=== PATIENT | female | born 1990 | race Caucasian/White ===

== ENCOUNTER 2023-06-05 21:59 | Inpatient (IN) | payer SELFPAY ==
[2023-06-05 22:24] VITALS: BMI 28.1
[2023-06-05] MEDS ORDERED: Misoprostol 200 MCG TAB PR PRN (22:54)
[2023-06-05] MEDS ORDERED: Bicitra 30 ML UDCUP PO PRN (22:54)
[2023-06-05] MEDS ORDERED: Diphenoxylate HCl/Atropine Tablet PO PRN (22:54)
[2023-06-05] MEDS ORDERED: Ondansetron PF 4 MG/2 ML Vial IVP PRN (22:54)
[2023-06-05] MEDS ORDERED: Promethazine HCl 25 MG/ML VIAL IM PRN (22:54)
[2023-06-05] MEDS ORDERED: Acetaminophen 500 MG TAB PO PRN (22:54)
[2023-06-05] MEDS ORDERED: hydrALAZINE 20 MG/ML VIAL SLOW IVP PRN (22:54)
[2023-06-05] MEDS ORDERED: Butorphanol Tartrate 1 MG/ML VIAL SLOW IVP PRN (22:54)
[2023-06-05] MEDS ORDERED: Carboprost 250 MCG/ML AMP IM PRN (22:54)
[2023-06-05] MEDS ORDERED: fentaNYL 50 mcg/mL 1 mL Vial SLOW IVP PRN (22:54)
[2023-06-05] MEDS ORDERED: Methylergonovine 0.2 MG/ML VIAL IM PRN (22:54)
[2023-06-05] MEDS ORDERED: Famotidine/PF 20 mg/2ml Vial SLOW IVP PRN (22:54)
[2023-06-05] MEDS ORDERED: Tranexamic Acid 1,000 MG/10 ML VIAL IVP PRN (22:54)
[2023-06-05] MEDS ORDERED: Gentamicin 130 MG, Admixture Fee 1 EACH in Sodium Chloride 0.9% 100 ML IVPB SCH (23:00)
[2023-06-05] MEDS ORDERED: Clindamycin/D5W 900 MG in Premix Bag 1 BAG IVPB SCH (23:00)
[2023-06-05] MEDS ORDERED: Oxytocin 30 units/NS 500 ML 500 ML IV SCH (23:00)
[2023-06-05] MEDS ORDERED: Lactated Ringer's 1,000 ML IV SCH (23:00)
[2023-06-05] MEDS ORDERED: Azithromycin 500 MG in Sodium Chloride 0.9% 250 ML 250 ML IVPB SCH (23:00)
[2023-06-05 23:29] LABS: Hemoglobin 14.5 g/dL (12.0-15.5); Mean Corpuscular HGB CONC 34.5 g/dL (32.0-36.0); Mean Corpuscular Hemoglobin 31.4 pg (27.0-33.0); Mean Corpuscular Volume 90.9 fl (81.6-98.3); Platelet Count 239 10x3/uL (150-450); RBC Distribution Width 12.8 % (11.5-14.5); Red Blood Cell (RBC) Count 4.62 10x6/uL (3.90-5.03); White Blood Cell (WBC) Count 12.1 10x3/uL (3.5-10.5)
[2023-06-05] MEDS ORDERED: PHENYLEPHRINE-NS 100 MCG/ML 10 ML SYRINGE ONE ×2 (23:47→23:49)
[2023-06-05] MEDS ORDERED: Ondansetron PF 4 MG/2 ML Vial ONE (23:47)
[2023-06-05] MEDS ORDERED: Morphine PF 10 MG/10 ML VIAL ONE (23:47)
[2023-06-05] MEDS ORDERED: Oxytocin 10 UNITS/ML VIAL ONE (23:47)
[2023-06-05] MEDS ORDERED: ePHEDrine Sulfate 50 MG/10 ML VIAL ONE (23:47)
[2023-06-05] MEDS ORDERED: fentaNYL 50 mcg/mL 1 mL Vial ONE (23:47)
[2023-06-05] MEDS ORDERED: Ketorolac Tromethamine 30 MG/ML VIAL ONE (23:47)
[2023-06-06 00:05] LABS: HBSAg Index 0.12 S/CO (0-0.99); Hep B Surf Ag - L&D Non-Reactive S/CO (NonReactive); Syphilis Antibody Nonreactive (Nonreactive); Syphilis Antibody Index 0.05 S/CO (<1.00 Non-Reactive)
[2023-06-06] MEDS ORDERED: PROPOFOL 20 ML ONE (00:16)
[2023-06-06] MEDS ORDERED: Fentanyl 250 MCG/5 ML VIAL ONE (00:36)
[2023-06-06] MEDS ORDERED: Oxytocin 10 UNITS/ML VIAL ONE (00:47)
[2023-06-06] MEDS ORDERED: Naloxone HCl 0.4 mg/ml Vial IVP PRN ×2 (01:10)
[2023-06-06] MEDS ORDERED: diphenhydrAMINE 25 MG CAP PO PRN ×2 (01:10→03:50)
[2023-06-06] MEDS ORDERED: Naloxone HCl 0.4 mg/ml Vial IV PRN ×2 (01:10)
[2023-06-06] MEDS ORDERED: Ondansetron PF 4 MG/2 ML Vial IVP PRN ×4 (01:10→03:50)
[2023-06-06] MEDS ORDERED: Promethazine HCl 25 MG SUPP PR PRN (01:10)
[2023-06-06] MEDS ORDERED: diphenhydrAMINE 50 MG/ML VIAL IM PRN (01:10)
[2023-06-06] MEDS ORDERED: Promethazine HCl 25 MG/ML VIAL IM PRN ×2 (01:10)
[2023-06-06] MEDS ORDERED: Meperidine HCl/PF 25 MG/ML VIAL SLOW IVP PRN (01:10)
[2023-06-06] MEDS ORDERED: diphenhydrAMINE 50 MG/ML VIAL IVP PRN ×2 (01:10)
[2023-06-06] MEDS ORDERED: FENTANYL 500 MCG/10 ML VIAL 2,000 MCG in Sodium Chloride 0.9% 60 ML IV PRN (01:10)
[2023-06-06] MEDS ORDERED: Moisturizing Cream (Eucerin) 113 GM JAR TOP PRN (01:10)
[2023-06-06] MEDS ORDERED: Ketorolac Tromethamine 30 MG/ML VIAL IVP SCH (01:15)
[2023-06-06] MEDS ORDERED: Communication Order-Pharmacy FS SCH ×2 (01:15)
[2023-06-06] MEDS ORDERED: FENTANYL 500 MCG/10 ML VIAL 1,000 MCG in Sodium Chloride 0.9% 30 ML IV PRN (01:30)
[2023-06-06] MEDS ORDERED: Boostrix 0.5 ML (Tdap) VIAL (>/=7 yrs of age) IM ONE (03:50)
[2023-06-06] MEDS ORDERED: Lanolin Ointment 7 GM TUBE TOP PRN (03:50)
[2023-06-06] MEDS ORDERED: Acetaminophen 325 MG TAB PO PRN (03:50)
[2023-06-06] MEDS ORDERED: Simethicone Chewable 80 MG TAB PO PRN (03:50)
[2023-06-06] MEDS ORDERED: hydrALAZINE 20 MG/ML VIAL SLOW IVP PRN (03:50)
[2023-06-06] MEDS ORDERED: HYDROcodone/Acetaminophen 5/325 mg Tablet PO PRN ×2 (16:17→16:18)
[2023-06-06] MEDS: Ketorolac Tromethamine 30 MG/ML VIAL IVP PRN ×2 (16:43→22:51)
[2023-06-06] MEDS: Ferrous Sulfate 325 MG TAB PO SCH (18:09)
[2023-06-06] MEDS: Prenatal Vitamin 1 TAB PO SCH (19:56)
[2023-06-07] MEDS: Ferrous Sulfate 325 MG TAB PO SCH ×2 (04:30→07:29)
[2023-06-07] MEDS: Ibuprofen 800 MG TAB PO SCH ×2 (06:09→13:34)
[2023-06-07 06:12] LABS: Hemoglobin 11.8 g/dL (12.0-15.5); Mean Corpuscular HGB CONC 33.7 g/dL (32.0-36.0); Mean Corpuscular Hemoglobin 31.7 pg (27.0-33.0); Mean Corpuscular Volume 94.1 fl (81.6-98.3); Mean Platelet Volume 10.7 fl (7.4-10.4); Platelet Count 206 10x3/uL (150-450); RBC Distribution Width 13.1 % (11.5-14.5); Red Blood Cell (RBC) Count 3.72 10x6/uL (3.90-5.03); White Blood Cell (WBC) Count 10.5 10x3/uL (3.5-10.5)
[2023-06-07] MEDS ORDERED: Ibuprofen 800 MG TAB PO SCH (08:00)
[2023-06-07] MEDS: Prenatal Vitamin 1 TAB PO SCH (08:27)
[2023-06-07 14:31] VITALS: BP 131/86; TEMP 98.2
== END 2023-06-07 18:30 | disposition home or self-care (01) | DRG 788 ==
LOC: CSHLD/OP 21:59 → CSHLD 22:54 → CSHPP 06-06 03:17
PROVIDERS: ADMIT Obstetrics & Gynecology; ATTEND Obstetrics & Gynecology
PROC: 10D00Z1 Extraction of Products of Conception, Low, Open Approach (ICD-10-PCS; principal; 2023-06-06)
DX: O34.211 Maternal care for low transverse scar from previous cesarean delivery (principal); Z3A.38 38 weeks gestation of pregnancy; Z37.0 Single live birth; O24.420 Gestational diabetes mellitus in childbirth, diet controlled; O42.02 Full-term premature rupture of membranes, onset of labor within 24 hours of rupture; O99.824 Streptococcus B carrier state complicating childbirth
CPT/HCPCS: 36415; 51702; 85027; 86780; 86850; 86900; 86901; 87340; 99285; J0456; J1885; J2274; J2405; J2590; J2704; J3010; J3490; J7050; S0028

== ENCOUNTER 2025-08-13 00:18 | Inpatient (IN) | payer SELFPAY ==
[2025-08-13 01:06] VITALS: BMI 27.4
[2025-08-13 01:36] LABS: Fetal Membranes Rupture RUPTURE DETECTED (No Rupture)
[2025-08-13] MEDS ORDERED: Acetaminophen 500 MG TAB PO PRN (01:50)
[2025-08-13] MEDS ORDERED: hydrALAZINE 20 MG/ML VIAL SLOW IVP PRN ×2 (01:50→06:18)
[2025-08-13] MEDS ORDERED: Bicitra 30 ML UDCUP PO PRN (01:50)
[2025-08-13] MEDS ORDERED: Famotidine/PF 20 mg/2ml Vial SLOW IVP PRN (01:50)
[2025-08-13] MEDS ORDERED: Carboprost 250 MCG/ML AMP IM PRN (01:50)
[2025-08-13] MEDS ORDERED: Tranexamic Acid 1,000 MG/10 ML VIAL IVP PRN (01:50)
[2025-08-13] MEDS ORDERED: Ondansetron PF 4 MG/2 ML Vial IVP PRN ×3 (01:50→03:44)
[2025-08-13] MEDS ORDERED: Methylergonovine 0.2 MG/ML VIAL IM PRN (01:50)
[2025-08-13] MEDS ORDERED: Diphenoxylate HCl/Atropine Tablet PO PRN ×2 (01:50)
[2025-08-13] MEDS ORDERED: Oxytocin 30 units/NS 500 ML 500 ML IV SCH (02:00)
[2025-08-13] MEDS ORDERED: Azithromycin 500 MG in Sodium Chloride 0.9% 250 ML 250 ML IVPB SCH (02:00)
[2025-08-13 02:15] LABS: Hematocrit 39.6 % (34.9-44.5); Hemoglobin 13.7 g/dL (12.0-15.5); Mean Corpuscular Hemoglobin 32.1 pg (27.0-33.0); Mean Corpuscular Volume 92.7 fL (81.6-98.3); Platelet Count 219 10x3/uL (150-450); Red Blood Cell (RBC) Count 4.27 10x6/uL (3.90-5.03); White Blood Cell (WBC) Count 12.28 10x3/uL (3.5-10.5)
[2025-08-13 02:45] LABS: Syphilis Antibody Index 0.09 S/CO (<1.00 Non-Reactive)
[2025-08-13 02:46] LABS: Hep B Surf Ag - L&D Non-Reactive S/CO (NonReactive)
[2025-08-13] MEDS ORDERED: Meperidine HCl/PF 25 MG (1 mL) VIAL SLOW IVP PRN (03:44)
[2025-08-13] MEDS ORDERED: diphenhydrAMINE 50 MG/ML VIAL IVP PRN (03:44)
[2025-08-13] MEDS ORDERED: Communication Order-Pharmacy FS SCH (03:45)
[2025-08-13] MEDS: Tranexamic Acid 1,000 MG/10 ML VIAL ONE (04:13)
[2025-08-13] MEDS: PROPOFOL 0 ML ONE (04:13)
[2025-08-13] MEDS: Methylergonovine 0.2 MG/ML VIAL ONE (04:13)
[2025-08-13] MEDS: Carboprost 250 MCG/ML AMP ONE (04:13)
[2025-08-13] MEDS: PHENYLEPHRINE-NS 100 MCG/ML 10 ML SYRINGE ONE ×3 (04:14)
[2025-08-13] MEDS: Ketorolac Tromethamine 30 MG (1 mL) VIAL IVP SCH (05:35)
[2025-08-13] MEDS ORDERED: Acetaminophen 325 MG TAB PO PRN (06:18)
[2025-08-13] MEDS ORDERED: diphenhydrAMINE 25 MG CAP PO PRN (06:18)
[2025-08-13] MEDS ORDERED: Lanolin Ointment 7 GM TUBE TOP PRN (06:18)
[2025-08-13] MEDS ORDERED: Simethicone Chewable 80 MG TAB PO PRN (06:18)
[2025-08-13] MEDS ORDERED: Bisacodyl 10 MG SUPP PR PRN (06:18)
[2025-08-13] MEDS: Ketorolac Tromethamine 30 MG (1 mL) VIAL IVP PRN (12:17)
[2025-08-13] MEDS ORDERED: HYDROcodone/Acetaminophen 5/325 mg Tablet PO PRN (15:45)
[2025-08-14] MEDS: HYDROcodone/Acetaminophen 5/325 mg Tablet PO PRN (04:18)
[2025-08-14 04:40] LABS: Hematocrit 34.5 % (34.9-44.5); Hemoglobin 11.7 g/dL (12.0-15.5); Mean Corpuscular Hemoglobin 32.7 pg (27.0-33.0); Mean Corpuscular Volume 96.4 fL (81.6-98.3); Platelet Count 181 10x3/uL (150-450); Red Blood Cell (RBC) Count 3.58 10x6/uL (3.90-5.03); White Blood Cell (WBC) Count 12.44 10x3/uL (3.5-10.5)
[2025-08-14] MEDS: Ibuprofen 800 MG TAB PO SCH (05:51)
[2025-08-15 08:19] VITALS: BP 125/82; TEMP 98.9
== END 2025-08-15 12:05 | disposition home or self-care (01) | DRG 786 ==
LOC: CSHLD/OP 00:18 → CSHLD 01:54 → CSHPP 06:10
PROVIDERS: ADMIT Obstetrics & Gynecology; ATTEND Obstetrics & Gynecology
PROC: 10D00Z1 Extraction of Products of Conception, Low, Open Approach (ICD-10-PCS; principal; 2025-08-13)
PROC: 3E03329 Introduction of Other Anti-infective into Peripheral Vein, Percutaneous Approach (ICD-10-PCS; 2025-08-13)
PROC: 4A1HXCZ Monitoring of Products of Conception, Cardiac Rate, External Approach (ICD-10-PCS; 2025-08-13)
DX: O34.211 Maternal care for low transverse scar from previous cesarean delivery (principal); O99.42 Diseases of the circulatory system complicating childbirth; O99.892 Other specified diseases and conditions complicating childbirth; M41.9 Scoliosis, unspecified; Z3A.38 38 weeks gestation of pregnancy; Z37.0 Single live birth; Z88.0 Allergy status to penicillin; I86.2 Pelvic varices
CPT/HCPCS: 36415; 51702; 84112; 85027; 86780; 86850; 86900; 86901; 87340; 99285; J0169; J1885; J2210; J2274; J2704; J3490